=== PATIENT | male | born 1955 | race Caucasian/White ===

== ENCOUNTER → 2016-10-19 | Day surgery (SDC) | payer OTHER ==
[~2016-10-19] VITALS: Ht 188 cm; Wt 83.2 kg
[~2016-10-19] MED LIST: ACETAMINOPHEN 1000 MG/100 ML VIAL IV SCH; BUPIVACAINE/EPINEPHRINE 0.25% PF 30 ML VIAL ONE; INSULIN HUMAN REGULAR 1,000 UNITS/10 ML VIAL SQ PRN; KETOROLAC TROMETHAMINE 30 MG/ML (IVP) VIAL IV PUSH ONE; LACTATED RINGER'S 1000 ML IV SCH; METOPROLOL TARTRATE 25 MG TAB PO PRN; MORPHINE SULFATE 4 MG/ML INJ IV PRN; NEOSTIGMINE 3 MG/3 ML SYR IV ONE; ONDANSETRON HCL 4 MG/2 ML VIAL IV PRN; ONDANSETRON HCL 4 MG/2 ML VIAL IV PUSH ONE; PERC5TAB12 PO; PROPOFOL 200 MG/20 ML AMP IV ONE; SODIUM CHLORID 0.9% 500 ML IV SCH; SODIUM CHLORIDE 5 ML FLUSH BID IVF SCH; SODIUM CHLORIDE 5 ML FLUSH PRN IVF; ceFAZolin 2 GM PREMIX 50 ML IV SCH; fentaNYL CITRATE 250 MCG/5 ML AMP ONE; metroNIDAZOLE 500 MG INJ 100 ML IV SCH; oxyCODONE/ACETAMINOPHEN 5 MG/325 MG TAB PO PRN
[2016-10-19 10:24] VITALS: BP 158/89; PULSE 80; RESP 20; TEMP 97.9; O2SAT 97
--- NOTE | 2016-10-19 14:06 | PD.OP ---
cc: Alberto Albarran MD; Abby Rossi MD Operative Report Date of Surgery: Oct 19, 2016 Preoperative Diagnosis: (1) Polyp of cecum Postoperative Diagnosis: (1) Polyp of cecum Procedure: Laparoscopic wedge resection of cecal polyp with localization by intraoperative colonoscopy Intraoperative colonoscopy performed by Dr. Rossi Anesthesia: DEBBY Surgeon: Alberto Albarran Professional Development Manager(s): Meche Operation and Findings: EBL: 5 cc Complications: None apparent Operative findings: The patient had a known sessile cecal polyp. The cecum and terminal ileum and appendix were mobilized. Dr. Rossi performed intraoperative colonoscopy and localized the polyp adjacent to the appendiceal orifice on the side of the ileocecal valve. With this localization, I was able to perform a wedge resection including the appendix of the base of the cecum. The specimen was opened on the back table and the entire polyp appeared to be present. By colonoscopy there were no other polyps noted in the cecum. Procedure in detail: The patient was taken to the operating room placed in the supine position with left arm tucked. General endotracheal anesthesia was induced and the abdomen was prepped and draped in usual sterile fashion. Surgical timeout was performed to verify correct patient procedure and site. Perioperative antibiotics were administered as necessary. Local anesthetic was injected in the skin and subcutaneous tissue at the superior umbilicus and a 5 mm incision made. Using the 5 mm Optiview trocar with laparoscope the abdomen was directly entered. The abdomen was then insufflated to 15 mmHg with CO2 gas which the patient tolerated well. The patient was then placed in Trendelenburg position and turned slightly to the left. A 12 mm port was placed under laparoscopic visualization of the left lower abdomen and a 5 mm port in the suprapubic area. Attention was turned to the right lower quadrant and the cecum and appendix were identified. The lateral attachments of the terminal ileum appendix and cecum were mobilized using the Harmonic scalpel. At this point, Dr. Rossi performed intraoperative colonoscopy. He noted the approximately 2 cm sessile polyp to be immediately adjacent to the appendiceal orifice on the side of the ileocecal valve. There appeared to be enough room to place a stapler near the ileocecal valve and take a margin around the appendix at the end of the cecum. The mesoappendix was taken down with the Harmonic scalpel and the colon mobilized a bit further. The laparoscopic 60 mm blue load stapler was used and placed between the appendiceal orifice and ileocecal valve taking a rim of cecum. A second fire was then required. The specimen was removed from the abdomen using an Endo Catch bag. The specimen was opened on the back table and the polyp was identified and seemed to be intact. The staple line had no bleeding and was intact. Intraluminally, by colonoscopy, the entire polyp appeared to be removed. Both laparoscopically and colonoscopically the ileocecal valve was patent and open. At this point the colonoscope was removed. The abdomen was allowed to desufflate. The fascia at the 12 mm port site was closed with a single 0 Vicryl suture. Skin closed with subcuticular Monocryl as well as Dermabond. The patient tolerated the procedure well was extubated and taken to PACU in stable condition. Alberto Albarran MD Oct 19, 2016 14:06
[2016-10-19 15:46] VITALS: BP 133/77; PULSE 75; RESP 16; TEMP 97.6; O2SAT 96
== END | disposition home or self-care (01) ==
LOC: HSDC 09:17 → HSDI 09:17 → UNDOADMIN 09:17 → HSDI 09:17 → EDSTATUS 12:00
PROVIDERS: ATTEND Surgery
DX: D12.0 Benign neoplasm of cecum (principal)
CPT/HCPCS: 00810; 44238; 45378; 86850; 86900; 86901; 88307; J0131; J0690; J1885; J2405; J2710; J3010; J7120; 88305